=== PATIENT | male | born 1945 | race Hispanic/Latino ===

== ENCOUNTER 2016-12-28 09:22 | Observation (INO) | payer OTHER ==
[2016-12-28 10:02] LABS: ADD MANUAL DIFF? NO
[2016-12-28 10:06] LABS: BASO # 0.06 K/mm3 (0.0-2.0); EOS # 0.3 (0.0-0.7); EOS % 4.5 % (1.5-5.0); GRAN # 3.58 (1.4-6.5); GRAN % 57.5 % (50.0-68.0); HEMATOCRIT 39.5 % (42.0-52.0); LYMPH # 1.8 (1.2-3.4); LYMPH % 28.3 % (22.0-35.0); MEAN CORPUSCULAR HEMOGLOBIN 29.1 pg (25.0-35.0); MEAN CORPUSCULAR HGB CONC 32.7 g/dl (31.0-37.0); MEAN PLATELET VOLUME 10.4 fl (7.0-11.0); MONO # 0.5 (0.1-0.6); MONO % 8.7 % (1.0-6.0); PLATELET COUNT 174 10^3/uL (120.0-450.0); RED CELL DISTRIBUTION WIDTH 13.8 % (11.5-14.5); WHITE BLOOD COUNT 6.2 10^3/ul (4.5-11.0)
[2016-12-28 10:15] LABS: ALB/GLOB RATIO 1.2 (1.1-1.8); ALKALINE PHOSPHATASE 76 U/L (38-133); ALT/SGPT 29 U/L (7-56); AST/SGOT 25 U/L (15-59); BILIRUBIN,TOTAL 0.7 mg/dL (0.2-1.3); BLOOD UREA NITROGEN 18 mg/dL (7-21); CALCIUM 8.6 mg/dL (8.4-10.5); CARBON DIOXIDE 28 mmol/L (21-33); CHLORIDE 103 mmol/L (98-107); GFR AFRICAN-AMERICAN > 60; GLUCOSE,RANDOM 136 mg/dL (70-110); MAGNESIUM 1.9 mg/dL (1.7-2.2); POTASSIUM 3.8 mmol/L (3.6-5.0); SODIUM 138 mmol/L (132-148)
--- NOTE | 2016-12-28 10:15 | RAD ---
HISTORY: weakness COMPARISON: No prior. FINDINGS: LUNGS: The lungs are well inflated and clear. PLEURA: No significant pleural effusion identified, no pneumothorax apparent. CARDIOVASCULAR: Normal. OSSEOUS STRUCTURES: No significant abnormalities. VISUALIZED UPPER ABDOMEN: Normal. OTHER FINDINGS: None. IMPRESSION: No active pulmonary disease.
[2016-12-28 10:16] LABS: INR 1.05 (0.93-1.08)
[2016-12-28 10:30] LABS: TROPONIN I < 0.01 ng/mL
[2016-12-28 11:10] LABS: URINE BILIRUBIN NEGATIVE (NEGATIVE); URINE BLOOD TRACE-INTACT (NEGATIVE); URINE GLUCOSE (UA) NEGATIVE (NEGATIVE); URINE KETONE NEGATIVE (NEGATIVE); URINE LEUKOCYTE ESTERASE NEGATIVE Leu/uL (NEGATIVE); URINE PROTEIN NEGATIVE mg/dL (<30 mg/dL); URINE UROBILINOGEN 0.2 E.U./dL (<1 E.U./dL)
[2016-12-28 11:11] LABS: URINE APPEARANCE CLEAR (CLEAR); URINE COLOR YELLOW (YELLOW)
--- NOTE | 2016-12-28 11:43 | CT ---
PROCEDURE: CT HEAD WITHOUT CONTRAST. HISTORY: Dizziness COMPARISON: None available. TECHNIQUE: Axial computed tomography images were obtained through the head/brain without intravenous contrast. Radiation dose: Total exam DLP = 757.00 mGy-cm. This CT exam was performed using one or more of the following dose reduction techniques: Automated exposure control, adjustment of the mA and/or kV according to patient size, and/or use of iterative reconstruction technique. FINDINGS: HEMORRHAGE: No intracranial hemorrhage. BRAIN: Jiménez-white matter differentiation is preserved. There is no mass, mass effect or abnormal extra-axial fluid collection. There is no territorial infarction.There are coarse atherosclerotic calcifications in the cavernous carotid arteries. VENTRICLES: There is mild age-related global parenchymal volume loss and proportionate enlargement of the ventricles and cortical sulci. CALVARIUM: Unremarkable. PARANASAL SINUSES: There is mild polypoid mucosal thickening in the maxillary sinuses and minimal polypoid mucosal thickening in the frontal sinuses. The remaining included paranasal sinuses are clear. MASTOID AIR CELLS: Unremarkable as visualized. No inflammatory changes. OTHER FINDINGS: There is a 1.6 cm calcified sebaceous cyst in the right occipital scalp.There is a small calcified sebaceous cyst in the left high parietal scalp. There are punctate dermal calcifications. IMPRESSION: No acute intracranial abnormality. Mild age-related global parenchymal volume loss.
--- NOTE | 2016-12-28 11:44 | ED PDOC ---
Arrival/HPI - General Chief Complaint: Dizziness/Lightheaded Time Seen by Provider: 12/28/16 09:23 Historian: Patient - History of Present Illness Narrative History of Present Illness (Text): 12/28/16 09:32 A 71 year old male with a medical history of hypertension and obesity presents to the emergency department with dizziness and nausea, which began this morning. pt poor historain, describes as sensatio of room moving. pt checked b/ p at home adn found to be elevated, which prompted er visit. Patient denies any other complaints at this time. PMD: None Time/Duration: Prior to Arrival (This morning ) Symptom Onset: Sudden Symptom Course: Unchanged Activities at Onset: Rest Context: Home Past Medical History - Provider Review Nursing Documentation Reviewed: Yes - Cardiac Hx Cardiac Disorders: Yes Hx Hypertension: Yes - Pulmonary Hx Respiratory Disorders: No - Neurological Hx Neurological Disorder: No - HEENT Hx HEENT Disorder: No - Renal Hx Renal Disorder: No - Endocrine/Metabolic Hx Endocrine Disorders: No - Hematological/Oncological Hx Blood Disorders: No - Integumentary Hx Dermatological Disorder: No - Musculoskeletal/Rheumatological Hx Musculoskeletal Disorders: No - Gastrointestinal Hx Gastrointestinal Disorders: No - Genitourinary/Gynecological Hx Genitourinary Disorders: No - Psychiatric Hx Psychophysiologic Disorder: No Hx Substance Use: No Family/Social History - Physician Review Nursing Documentation Reviewed: Yes Family/Social History: Unknown Family HX Smoking Status: Never Smoked Hx Alcohol Use: No Hx Substance Use: No Allergies/Home Meds Allergies/Adverse Reactions: Allergies No Known Allergies Allergy (Verified 12/28/16 09:32) Home Medications: Home Meds Medication Instructions Recorded Confirmed Carvedilol [Coreg] 25 mg PO BID 12/28/16 12/28/16 Review of Systems - Physician Review All systems were reviewed & negative as marked: Yes - Review of Systems Gastrointestinal: Nausea, Vomiting Neurological: Dizziness Physical Exam Vital Signs Reviewed: Yes Vital Signs Temp Pulse Resp BP Pulse Ox 12/28/16 14:22 77 17 162/92 H 96 12/28/16 11:13 62 17 149/94 H 96 12/28/16 09:37 98.9 F 67 18 172/97 H 96 12/28/16 09:36 97.9 F 66 16 172/97 H 96 Temperature: Afebrile Blood Pressure: Hypertensive Pulse: Regular Respiratory Rate: Normal Appearance: Positive for: Well-Appearing, Non-Toxic, Comfortable Pain Distress: None Mental Status: Positive for: Alert and Oriented X 3 - Systems Exam Head: Present: Atraumatic, Normocephalic Pupils: Present: PERRL Conjunctiva: Present: Normal Mouth: Present: Moist Mucous Membranes Neck: Present: Normal Range of Motion Respiratory/Chest: Present: Clear to Auscultation, Good Air Exchange. No: Respiratory Distress, Accessory Muscle Use Cardiovascular: Present: Regular Rate and Rhythm, Normal S1, S2. No: Murmurs Abdomen: Present: Normal Bowel Sounds, Hernias (Soft umbillical hernia that is reducible), Other (Obese). No: Tenderness, Peritoneal Signs Upper Extremity: Present: Normal Inspection. No: Cyanosis, Edema Lower Extremity: Present: Normal Inspection. No: Edema Neurological: Present: GCS=15, CN II-XII Intact, Speech Normal Skin: Present: Warm, Dry, Normal Color. No: Rashes Psychiatric: Present: Alert, Oriented x 3, Normal Insight, Normal Concentration Medical Decision Making ED Course and Treatment: Impression: A 71 year old male complaints of dizziness and vomiting. Differential Diagnosis included but are not limited to: r/o intracranial, metaboltic, infectious, atypicla cardiac Plan: -- Chest X-ray -- EKG -- Labs -- Antivert, Zofran -- Reassess and disposition Progress Notes: EKG: Ordered, reviewed, and independently interpreted the EKG. Rate : 68 BPM Rhythm : NSR Interpretation : No ST/T CT HEAD WITHOUT CONTRAST. Store Promoter : Emily De Leon MD PARANASAL SINUSES: There is mild polypoid mucosal thickening in the maxillary sinuses and minimal polypoid mucosal thickening in the frontal sinuses. The remaining included paranasal sinuses are clear. OTHER FINDINGS: There is a 1.6 cm calcified sebaceous cyst in the right occipital scalp.There is a small calcified sebaceous cyst in the left high parietal scalp. There are punctate dermal calcifications. IMPRESSION: No acute intracranial abnormality. Mild age-related global parenchymal volume loss. Chest X-ray Store Promoter: Dr. Emily De Leon MD IMPRESSION: No active pulmonary disease 12/28/16 11:56 pt with persistent vertigo. will need mri to r/o posterior infarct. dr stewart accepts. - Lab Interpretations Lab Results: 12/28/16 10:01 12/28/16 10:01 Lab Results 12/28/16 11:03: Urine Color Yellow, Urine Appearance Clear, Urine pH 7.0, Ur Specific [place] 1.015, Urine Protein Negative, Urine Glucose (UA) Negative, Urine Ketones Negative, Urine Blood Trace-intact H, Urine Nitrate Negative, Urine Bilirubin Negative, Urine Urobilinogen 0.2, Ur Leukocyte Esterase Negative , Urine RBC 0 - 2, Urine WBC Negative, Ur Epithelial Cells 0 - 2, Urine Bacteria Trace 12/28/16 10:01: Sodium 138, Potassium 3.8, Chloride 103, Carbon Dioxide 28, Anion Gap 11, BUN 18, Creatinine 0.7, Est GFR ( Amer) > 60, Est GFR (Non- Af Amer) > 60, Random Glucose 136 H, Calcium 8.6, Magnesium 1.9, Total Bilirubin 0.7, AST 25, ALT 29, Alkaline Phosphatase 76, Lactate Dehydrogenase 395, Total Creatine Kinase 49, Troponin I < 0.01, Total Protein 7.0, Albumin 3.8 , Globulin 3.2, Albumin/Globulin Ratio 1.2 12/28/16 10:01: PT 11.3, INR 1.05, APTT 30.0 12/28/16 10:01: WBC 6.2, RBC 4.44, Hgb 12.9 L, Hct 39.5 L, MCV 89.0, MCH 29.1, MCHC 32.7, RDW 13.8, Plt Count 174, MPV 10.4, Gran % 57.5, Lymph % (Auto) 28.3, Lamar % (Auto) 8.7 H, Eos % (Auto) 4.5, Baso % (Auto) 1.0, Gran # 3.58, Lymph # 1.8, Lamar # 0.5, Eos # 0.3, Baso # 0.06 - RAD Interpretation Radiology Orders: 12/28/16 09:34 CHEST PORTABLE [RAD] Stat 12/28/16 10:53 HEAD W/O CONTRAST [CT] Stat - Medication Orders Current Medication Orders: Aspirin (Ecotrin) 325 mg PO DAILY [facility] Last Admin: 12/28/16 14:14 Dose: Carvedilol (Coreg) 25 mg PO BID [facility] Enoxaparin Sodium (Lovenox) 40 mg SC DAILY [facility] PRN Reason: Protocol Last Admin: 12/28/16 14:15 Dose: 40 mg Meclizine HCl (Antivert) 25 mg PO Q8H JACY Last Admin: 12/28/16 14:14 Dose: Ondansetron HCl (Zofran Inj) 4 mg IVP Q8H PRN PRN Reason: Nausea/Vomiting Pantoprazole Sodium (Protonix Ec Tab) 40 mg PO DAILY JACY Last Admin: 12/28/16 14:15 Dose: 40 mg Discontinued Medications Aspirin (Aspirin) 325 mg PO STAT STA Stop: 12/28/16 11:55 Last Admin: 12/28/16 14:15 Dose: 325 mg Gadodiamide (Omniscan No Safepak) Confirm Administered Dose 4,305 mg IV .STK- MED ONE Stop: 12/28/16 14:00 Meclizine HCl (Antivert) 25 mg PO STAT STA Stop: 12/28/16 10:54 Last Admin: 12/28/16 11:08 Dose: 25 mg Ondansetron HCl (Zofran Inj) 4 mg IVP STAT STA Stop: 12/28/16 09:35 Last Admin: 12/28/16 09:51 Dose: 4 mg NIHSS Scale ([place]) Time Performed: 11:56 - How Severe is the Stoke Baseline Level of Consciousness: 0=Alert LOC to Questions: 0=Both comments correct LOC to commands: 0=Obeys both correctly Visual: 0=No visual loss Facial: 0=Normal Motor Arm - Left: 0=No drift Motor Arm - Right: 0=No drift Motor Leg - Left: NA - Amputation, joint fusion Motor Leg - Right: 0=No drift Limb Ataxia: 0=Absent Sensory: 0=Normal Best Language: 0=No aphasia Dysarthia: 0=Normal articulation Extinction & Inattention (Neglect): 0=Normal, no object rTPA Inclusion/Exclusion - Refusal of Treatment Patient Refused Treatment: No - Inclusion Criteria for Altepase Patient is 18 years or Older: Yes The Clinical Diagnosis of Ischemic Stroke That is Causing a Potentially Disabling Neurological Deficit: No Time of Onset is Well Established to be Less Than 270 Minute Before Treatment Would Begin: No Risk/Benefit Discussed With Patient/Family Member Present: Yes - Scribe Statement The provider has reviewed the documentation as recorded by the Reubenibjulianna Horton training under [facility] Provider Scribe Attestation: All medical record entries made by the Scribe were at my direction and personally dictated by me. I have reviewed the chart and agree that the record accurately reflects my personal performance of the history, physical exam, medical decision making, and the department course for this patient. I have also personally directed, reviewed, and agree with the discharge instructions and disposition. Disposition/Present on Arrival - Present on Arrival Any Indicators Present on Arrival: No History of DVT/PE: No History of Uncontrolled Diabetes: No Urinary Catheter: No History of Decub. Ulcer: No History Surgical Site Infection Following: None - Disposition Have Diagnosis and Disposition been Completed?: Yes Diagnosis: Vertigo Disposition: HOSPITALIZED Disposition Time: 11:00 Condition: FAIR
[2016-12-28 11:48] LABS: URINE BACTERIA TRACE (NEG); URINE EPITHELIAL CELLS 0 - 2 /hpf (0-5); URINE RBC 0 - 2 /hpf (0-2); URINE WBC NEGATIVE /hpf (0-6)
[2016-12-28] MEDS ORDERED: Gadodiamide 287 MG/ML VIAL (15ML) IV ONE (13:59)
[2016-12-28] MEDS: Aspirin 325 mg EC Tablets PO SCH (14:14)
[2016-12-28] MEDS: Enoxaparin 40 mg Syringe SC SCH (14:15)
[2016-12-28] MEDS: Pantoprazole 40 mg EC Tab PO SCH (14:15)
--- NOTE | 2016-12-28 14:40 | US ---
PROCEDURE: Bilateral carotid artery duplex ultrasound HISTORY: Carotid stenosis possible TIA PHYSICIAN(S): Abhishek Spear MD. TECHNIQUE: Duplex sonography and color-flow Doppler were used to evaluate the carotid bifurcations and limited segments of the vertebral arteries bilaterally. The exam is limited by body habitus FINDINGS: There is mild to moderate smooth heterogeneous plaque noted at the carotid bifurcations bilaterally. The peak systolic velocity in the proximal right internal carotid artery is 53 cm/sec. This corresponds to a 20 to 39% proximal right ICA stenosis. Normal systolic velocities are noted in the proximal right external carotid artery. There is antegrade flow in the small right vertebral artery. The peak systolic velocity in the proximal left internal carotid artery is 89 cm/sec. This corresponds to a 20 to 39% proximal left ICA stenosis. Normal systolic velocities are noted in the proximal left external carotid artery. There is antegrade flow in the left vertebral artery. IMPRESSION: 1. Bilateral 20-39% proximal ICA stenoses. 2. Antegrade flow in both vertebral arteries.
--- NOTE | 2016-12-28 14:58 | MRI ---
PROCEDURE: MRI BRAIN WITH AND WITHOUT CONTRAST HISTORY: INTRACTABLE DIZZINESS COMPARISON: Noncontrast head CT performed earlier the same day. TECHNIQUE: Multiplanar, multisequence MR images of the brain were obtained with and without intravenous contrast enhancement. 15 mm gadolinium was injected intravenously FINDINGS: HEMORRHAGE: None DWI: No evidence of an acute or early subacute infarction. BRAIN PARENCHYMA: Jiménez-white matter differentiation is preserved. There is no mass, mass effect or abnormal extra-axial fluid collection. The midline sagittal structures are normal. ENHANCEMENT: There is 4 x 5 mm focus of enhancement in the left proximal internal auditory canal. No abnormal i parenchymal or leptomeningeal enhancement. VENTRICLES: The ventricles are normal in size, shape and configuration. CRANIUM: Unremarkable. ORBITS: Grossly unremarkable. PARANASAL SINUSES/MASTOIDS: There is polypoid mucosal thickening in the maxillary sinuses. The mastoid air cells are predominantly clear. VASCULAR SYSTEM: There are normal signal voids in the larger intracranial. OTHER FINDINGS: None . IMPRESSION: 1. No acute intracranial abnormality. 2. 4 x 5 mm focal enhancement in the left proximal internal auditory canal is nonspecific and not completely characterized on this examination. A dedicated MRI of the internal auditory canals with and without intravenous contrast is recommended for further evaluation.
--- NOTE | 2016-12-28 15:02 | MRI ---
PROCEDURE: Magnetic Resonance Angiography Brain HISTORY: INTRACTABLE DIZZINESS COMPARISON: None available. TECHNIQUE: 3D time of flight MR angiography of the intracranial arteries was performed. Rotating maximum intensity projection images were generated. FINDINGS: INTERNAL CEREBRAL ARTERIES: Normal in caliber. The skull base, petrous, cavernous and supraclinoid segments are bilaterally widely patient. ANTERIOR CEREBRAL ARTERIES: Normal in caliber. A1 and A2 segments are widely patent. Smaller distal branches unremarkable, as visualized. MIDDLE CEREBRAL ARTERIES: Normal in caliber. M1 and M2 segments are widely patent. Perisylvian branches grossly symmetric. POSTERIOR CIRCULATION: Basilar Artery: Normal in caliber. Distal Vertebral Arteries: Normal in caliber. Posterior Cerebral Arteries: Normal in caliber. Posterior Inferior Cerebellar Arteries: Normal in caliber. ANEURYSM/ VASCULAR MALFORMATIONS: None. OTHER FINDINGS: None. IMPRESSION: Normal MR angiography of the brain.
--- NOTE | 2016-12-28 15:16 | CARD ---
APPROVED REPORT EKG Measurement Heart [id number] <Conclusion> Normal sinus rhythm Inferior infarct, age undetermined Abnormal ECG
[2016-12-28 15:24] LABS: TROPONIN I < 0.01 ng/mL
[2016-12-28 15:38] LABS: FREE T4 1.01 ng/dL (0.78-2.19); T4 7.1 ug/dL (5.5-11.0)
[2016-12-28 15:51] LABS: THYROID STIMULATING HORMONE 2.02 mIU/mL (0.46-4.68)
[2016-12-28 18:53] LABS: CHOLESTEROL 154 mg/dL (130-200)
[2016-12-28 19:08] LABS: TROPONIN I < 0.01 ng/mL
--- NOTE | 2016-12-28 20:04 | CON ---
DATE: 12/28/2016 REASON FOR CONSULTATION: Dizziness. HISTORY OF PRESENT ILLNESS: The patient is a 71-year-old male who came to the hospital complaining o f dizziness. Dizziness started this morning. Dizziness described as spinning sensation. It was ass ociated with nausea. He did not have any focal weakness in arms or legs. The dizziness lasted sever al minutes until he came to the Emergency Room. He was given meclizine and after that he is feeling better. At the moment, he has very mild dizziness. Denies any focal weakness in arms or legs. Did not have any loss of vision. PAST MEDICAL HISTORY: Includes hypertension and obesity. MEDICATIONS AT HOME: Included Coreg. ALLERGIES: No known drug allergies. SOCIAL HISTORY: Denies smoking, use of alcohol or illicit drugs. FAMILY HISTORY: Reviewed and noncontributory to the case. PHYSICAL EXAMINATION: GENERAL: The patient is an elderly pleasant male sitting on the bed in no acute distress. VITAL SIGNS: His blood pressure is 189/96, heart rate is 79 per minute, breathing at a rate of 16 pe r minute, temperature is 98.9 degrees Fahrenheit. HEENT: Normocephalic, atraumatic. NECK: Supple. There are no carotid bruits. LUNGS: Clear. CARDIOVASCULAR: S1, S2 audible. No murmurs. ABDOMEN: Soft and nontender, bowel sounds present. NEUROLOGIC EXAMINATION: MENTAL STATUS: The patient is awake, alert, oriented to time, place, person . Speech is fluent . Naming and repetition normal. Memory and cognition are intact. CRANIAL NERVE EXAMINATION: Pupils are 4 mm bilaterally reactive to light. Visual plaza are full. Extraocular movements are intact. There is no facial asymmetry. MOTOR: He is moving all 4 extremities. Plantars downgoing bilaterally. Power is 5/5 bilaterally. Reflexes +1 and symmetrical. Plantars downgoing bilaterally. CEREBELLAR EXAMINATION: [id number] shows no dysmetria. Gait is narrow-based. Romberg is negati ve. LABORATORY DATA: Labs reviewed, shows WBC of 6.2, hemoglobin 12.9, hematocrit 39.5 and platelets of 174. His INR is 1.05. Sodium is 138, potassium 3.8, chloride , carbon dioxide 28, BUN of 18, c reatinine 0.7 and glucose of 136. He had MRI of the brain done, which showed no acute intracranial a bnormality, 4 x 5 mm focal enhancement in the left proximal internal auditory canal is nonspecific an d not completely characterized on this examination. A dedicated MRI of the internal auditory canal i s recommended. The patient also had MRA of the brain done, which is normal. 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 RECOMMENDATIONS: 1. The patient to have MRI of the internal auditory canal with and without contrast. 2. The patient was started on meclizine, which may be continued on an as needed basis. 3. If patient remains stable and has no further dizziness and MRI of the internal auditory canal farhad ws no significant pathology, then he may be discharged with outpatient followup. Thank you for the opportunity to participate in the care of this patient. Frank Morales MD cc: [id number] TT: 12/28/2016 20:03:50 Confirmation # [id number] Dictation # [id number] shantal
--- NOTE | 2016-12-28 21:49 | HP ---
HISTORY OF PRESENT ILLNESS: The patient is a 71-year-old male who came to the Emergency Ro with less than 24 hour complaint of history of dizziness and spinning feeling which started today with some questionable ringing in the ears. According to the ER triage notes, the patient came to [facility] Emergency Room by [facility] ambulance complaining dizziness and nausea this morning. The patient stated that he was in his usual state of health until yesterday. According to the ER physician tobias webb, the patient presented with dizziness and nausea which began this morning. The patient also st ated that he also had some near syncopal episode, but denies any loss of consciousness. REVIEW OF SYSTEMS: A 13-system review was done. Pertinent positive and negative dictated above. CODE STATUS: Full code. LIVING WILL AND ADVANCED DIRECTIVE: None. Height is 5 feet 5 inches. WEIGHT: 185 pounds. BMI: 31. ALLERGIES: None. HOME MEDICATIONS: Coreg 25 twice a day. SOCIAL HISTORY: The patient is positive former smoker and positive alcohol user, denies any active a lcoholism or smoking. Denies any communicable transmissible disease. Denies any high risk sexual be havior. MEDICATIONS: The patient's medications are Coreg 25 twice a day. FAMILY HISTORY: Not available. 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 PAST MEDICAL HISTORY: Significant for hypertension, history of inguinal hernia surgery, history of o besity, history of inguinal hernia surgery. The patient denies any cerebral or coronary event. PHYSICAL EXAMINATION: GENERAL: The patient is seen in the Emergency Room. VITAL SIGNS: A 13-system review is positive as dictated above. T-max 98.9, heart rate 62-79-87-77, blood pressure 172/97, 149/94, 162/92, 189/96, respirations 16, O2 sat 96-97. HEAD: Normocephalic, atraumatic. HEENT: Shows pink conjunctivae, anicteric sclerae. No oropharyngeal lesion. NECK: No neck rigidity. Questionable soft carotid bruit. CHEST: Shows kyphosis. LUNGS: Shows no rales, crackles, or wheezing. CARDIOVASCULAR: S1, S2. Questionable soft systolic murmur left sternal border, right second interco stal space, left second intercostal space. ABDOMEN: Protuberant, obese, positive bowel sounds. GENITALIA: Male. RECTAL: Deferred. EXTREMITIES: Shows no pitting edema, no calf tenderness, no Homans sign. Motor strength is 5/5 in u pper and lower extremity. GAIT: Intact. MUSCULOSKELETAL: Shows an elevated body mass index of 31. VASCULAR: Palpable pulses. MUSCULOSKELETAL: Shows elevated body mass index. PSYCHIATRIC: Negative. NEUROLOGIC: Cranial nerves II-XII grossly intact. DTRs are 2+. No nystagmus noted in vertical or h orizontal field. No facial asymmetry noted. No neck rigidity noted. DIAGNOSTICS: WBC 6.2, hemoglobin/hematocrit 12.9 and 39.5, platelets 174. PT, PTT is normal. Sodiu m 138, potassium 3.8, chloride 103, CO2 28, anion gap 11, BUN 18, creatinine 0.7, GFR greater than 60 , glucose 136, calcium 8.6, magnesium 1.9. LFTs are normal. Troponin 0.01. Cholesterol 154, LDL 11 3, HDL 37. The patient had a thyroid panel, TSH 2.0. T4 7.1. Urinalysis: pH of 7.0, specific grav ity 1.015, trace blood, trace bacteria. Chest x-ray, which was done in the Emergency Room: No activ e disease. EKG done in the Emergency Room shows sinus rhythm, questionable old inferior wall myocard ial infarction with Q-wave in III and aVF. CT of the head was done which shows no masses, global par enchymal volume loss with ventriculomegaly, maxillary sinus polypoid mucosal thickening and frontal s inus polypoid mucosal thickening with 1.6 cm calcified sebaceous cyst of the right occipital scalp a nd left high parietal scalp sebaceous cyst. The patient's EKG as mentioned. The patient was seen in the Emergency Room by ____. The patien t was given Zofran 4 mg. The patient was given Cozaar 50 mg. The patient was given aspirin 325. Th e patient was given meclizine 25, and the patient was advised to be admitted for intractable dizzines s. IMPRESSION AND PLAN: 1. Intractable dizziness versus questionable benign positional vertigo versus questionable and possi ble labyrinthitis. 2. Uncontrolled hypertension. 3. Normocytic anemia. 4. Hyperuricemia. 5. Hypercholesterolemia with elevated LDL and decreased HDL. 6. Questionable age indeterminate inferior infarct as per EKG. 7. Questionable near syncope. 8. Questionable labyrinthitis. 9. Global time will brain volume loss with proportionate ventriculomegaly. 10. Maxillary and frontal sinus polypoid mucosal thickening. 11. Right occipital scalp and left parietal scalp calcified sebaceous cyst with punctate dermal calc ification. 12. Hypertension. 13. Bilateral 20% - 39% proximal internal carotid artery stenosis. 14. Left proximal internal auditory canal 4 x 5 mm focus of enhancement, etiology undetermined. 15. Obesity. 16. Elevated body mass index. PLAN: At this time, the patient will be admitted to remote telemetry. The patient has been ordered a hemoglobin A1c. The patient has been ordered vitamin D25 hydroxy. Serial cardiac enzymes are orde red. The patient has been ordered neurology and ENT consultation. RPR ordered. CURRENT MEDICATIONS: Antivert 25 mg q. 8, aspirin 325 daily, clonidine 0.1 mg q. 6 p.r.n. for systo lic blood pressure greater than or equal to 170 diastolic blood pressure equal to greater than 100, C oreg 25 b.i.d., is resumed as his home medication. The patient was started also on Cozaar 100 mg torres ly, Ecotrin 325 mg daily, Lipitor 40 mg daily, Lovenox 40 mg subQ daily for DVT prophylaxis, Protonix 40 daily for GI prophylaxis, Zofran 4 IV q. 8 p.r.n. The patient is ordered MRI/MRA of the brain which was reviewed. The patient has been ordered MRA of the brain which is also negative. MRI of the brain was reviewed, which shows a left commissioner of internal revenue y canal, nonspecific enhancement for which patient has been requested ENT and neurology consultation. Echo with Doppler ordered. Heart healthy diet ordered. The patient seen and examined. At present, patient's further management will be dependent upon the p atient's clinical condition, hemodynamic status, and as per patient's response to therapeutic interve ntion, as per patient's diagnostic test results and as per recommendation by all the physicians invol edinson in the care of the patient. Dictated, electronically signed, not read. Jose Chong MD cc: [id number] TT: 12/28/2016 21:48:03 jn
[2016-12-28 23:16] VITALS: BMI 30.7
[2016-12-28] MEDS ORDERED: Pneumococcal 23-Valent Vaccine IM ONE (23:16)
[2016-12-29 01:21] VITALS: RESP 20
[2016-12-29 07:08] VITALS: BP 120/75; TEMP 98.1
[2016-12-29 07:47] LABS: TROPONIN I < 0.01 ng/mL
[2016-12-29 08:05] VITALS: O2SAT 96
[2016-12-29] MEDS: Enoxaparin 40 mg Syringe SC SCH (09:13)
[2016-12-29] MEDS: Aspirin 325 mg EC Tablets PO SCH (09:13)
[2016-12-29] MEDS: Pantoprazole 40 mg EC Tab PO SCH (09:13)
[2016-12-29] MEDS ORDERED: Gadodiamide 287 MG/ML VIAL (15ML) IV ONE (12:39)
--- NOTE | 2016-12-29 13:13 | MRI ---
PROCEDURE: MRI OF THE BRAIN AND INTERNAL AUDITORY CANALS WITH AND WITHOUT CONTRAST. HISTORY: DIZZINESS. ?MASS. COMPARISON: None. TECHNIQUE: Multiplanar, multisequence MR images of the brain and posterior fossa were obtained with and without contrast. High-resolution posterior fossa and images through the cerebellopontine angle and internal auditory canals included: Axial 3-D fiesta, axial T1 pre-and postcontrast enhanced and coronal T1 pre-and postcontrast enhanced. FINDINGS: IAC/CP ANGLES: INTERNAL AUDITORY CANALS: Unremarkable. CEREBELLOPONTINE ANGLES: Unremarkable. INNER EAR STRUCTURES: Unremarkable. Normally formed cochlea and semicircular canals. No signal abnormality or abnormal enhancement in the membranous labyrinth of the cochlea, vestibule or the semicircular canals. BRAINSTEM: Unremarkable. MASTOIDS: Clear OTHER: No other notable findings. BRAIN (LIMITED): No mass effect or edema. PARANASAL SINUSES: Clear IMPRESSION: Unremarkable pre and post contrast enhanced MRI of the Brain and IACs.
[2016-12-29 15:29] VITALS: PULSE 82
--- NOTE | 2016-12-29 19:45 | DS ---
The patient is seen in room 365, bed 2. The patient is lying in the bed. The patient is comfortable . Overnight nurse's notes were reviewed. No adverse events documented. PHYSICAL EXAMINATION: VITAL SIGNS: T-max 98. Heart rate 68, 61, 79. Respirations 20, O2 sat 96%. Blood pressure has com e down from 189/96 to 148/88 to 102/64 to 120/75. Respirations 20, O2 sat 96% to 99%. HEAD: Normocephalic, atraumatic. HEENT: Shows pink conjunctivae. [place] conjunctivae, anicteric sclerae. No oropharyngeal lesion. NECK: No neck rigidity, soft carotid bruit. CHEST: Kyphosis. LUNGS: Shows no rales, crackles, or wheezing. CARDIOVASCULAR: S1, S2, regular rhythm. ABDOMEN: Soft, positive bowel sounds. GENITALIA: Male. RECTAL: Deferred. EXTREMITIES: Shows no pitting edema, no calf tenderness, no Homans' sign. NEUROLOGIC: The patient is alert, awake, responsive. Is able to move upper and lower extremity with out assistance. Gait examination is independent. The patient denies any dizziness. Denies any spin mckenna. Denies any near syncope. DIAGNOSTICS: Hemoglobin A1c 6.9. Troponin all sets are negative. Vitamin D 25-hydroxy 26. RPR is n egative. Repeat brain MRI of the internal auditory canals was done, which was negative for any abnor malities of the internal auditory canal which was done with and without contrast. The patient was se en by neurologist, cleared for discharge by neurology. IMPRESSION AND PLAN: 1. Intractable dizziness, vertigo (resolved). 2. Near syncope secondary to intractable dizziness and vertigo and possible labyrinthitis. 3. Uncontrolled hypertension. 4. Normocytic anemia. 5. Hypercholesterolemia with elevated LDL and decreased HDL. 6. Labyrinthine dysfunction causing dizziness. 7. Mild normocytic anemia. 8. Cardiac enzymes negative. Repeat MRI noted. The patient was cleared for discharge. The patient will be discharged home. DISCHARGE MEDICATIONS: 1. Meclizine 25 mg q.8 hours. 2. Cozaar 100 mg daily. 3. Vitamin D3 at 2000 units daily. 4. Coreg 25 mg twice a day. 5. Lipitor 40 mg daily. The patient was discharged home. The patient was advised discharge followup with Dr. Chong next week with all medications. The patient's discharge medications was sent to the pharmacy. DISCHARGE DIET: Heart healthy diet. During this hospitalization, patient was extensively explained about the details of his medical condi tion, diagnosis, test results. All details discussed and explained. Time spent in the entire discha rge process more than 45 minutes. Dictated and electronically signed, not read. Jose Chong MD cc: [id number] TT: 12/29/2016 19:45:22 sn
== END 2016-12-29 15:34 | disposition home or self-care (01) ==
LOC: ED 09:22 → ERH 11:54 → 3RNO 16:17
PROVIDERS: ADMIT Internal Medicine; ATTEND Internal Medicine
DX: H83.2X9 Labyrinthine dysfunction, unspecified ear (principal); H83.09 Labyrinthitis, unspecified ear; R55 Syncope and collapse; I10 Essential (primary) hypertension; D64.9 Anemia, unspecified; E78.00 Pure hypercholesterolemia, unspecified; E66.9 Obesity, unspecified; G93.89 Other specified disorders of brain; I65.23 Occlusion and stenosis of bilateral carotid arteries; L72.3 Sebaceous cyst; Z87.891 Personal history of nicotine dependence; Z72.89 Other problems related to lifestyle; E79.0 Hyperuricemia without signs of inflammatory arthritis and tophaceous disease; J32.0 Chronic maxillary sinusitis; J32.1 Chronic frontal sinusitis; Z68.30 Body mass index [BMI] 30.0-30.9, adult